=== PATIENT | male | born 1950 | race Native Hawaiian/Other Pacific Islander ===

== ENCOUNTER 2018-04-13 10:49 | Outpatient (CLI) | payer OTHER | END 2018-04-13 23:25 | disposition home or self-care (01) | LOC: RAD 10:49 | DX: R06.02 Shortness of breath (principal) ==

== ENCOUNTER 2019-07-17 19:11 | Emergency (ER) | payer OTHER ==
[~2019-07-17] VITALS: Ht 172.7 cm; Wt 104.3 kg
[2019-07-17 20:30] VITALS: BP 177/89; TEMP 98.8
== END 2019-07-17 20:30 | disposition home or self-care (01) ==
LOC: ED 19:11
PROC: 2W3QX1Z Immobilization of Right Lower Leg using Splint (ICD-10-PCS; principal; 2019-07-17)
DX: S82.64XA Nondisplaced fracture of lateral malleolus of right fibula, initial encounter for closed fracture (principal); X50.1XXA Overexertion from prolonged static or awkward postures, initial encounter; Y92.89 Other specified places as the place of occurrence of the external cause
CPT/HCPCS: 99283